=== PATIENT | female | born 1970 | race Caucasian/White ===

== ENCOUNTER → 2019-06-06 13:37 | Outpatient (CLI) | payer OTHER, SELFPAY ==
--- NOTE | ~2019-06-06 | XR_ITS ---
XR fl inj hip RT for MR/CT DATE: 06/06/2019 15:28 INDICATION: Hip flexor tightness, chronic right hip pain TECHNIQUE: The purpose of the procedure, technique were explained to the patient. The patient gave ve rbal consent. Timeout procedure confirmed proper patient and sidedness. The skin was prepared with sterile Betadine solution. 1% Lidocaine was infiltrated at the skin and u nderlying subcutaneous tissues at the upper outer right thigh. Using fluoroscopic guidance a 22-gaug e spinal needle was introduced into the right hip joint near the base of the right femoral head. 12 c c of dilute Omnipaque and MultiHance solution was injected, with confirmation of intra-articular posi tion of the contrast material by fluoroscopy. Radiographic exposures were made to confirm intra-artic ular position of the contrast material. The patient was very cooperative and tolerated the procedure well, without apparent complication. IMPRESSION: Successful Fluoroscopically guided intra-articular injection of dilute MultiHance injecti on of the right hip joint for MR evaluation Reviewed, dictated and finalized at [facility]. Reviewed, dictated and finalized at location [facility]. 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
--- NOTE | ~2019-06-06 | MR_ITS ---
EXAMINATION: MR hip RT w con DATE: 06/06/2019 15:28 INDICATION: Chronic right hip pain. Hip flexor tightness. TECHNIQUE: Magnetic resonance imaging (MRI) of the right hip was performed without intravenous contra st after intra-articular injection of contrast (MR arthrogram). Sequences included axial T1-weighted FSE and T2-weighted FS FSE, coronal T2-weighted FSE, and small aznrf-jo-nxoi coronal and axial T1-jorje ghted FS FSE and T2-weighted FS FSE, sagittal T2-weighted FS FSE, and radial T1-weighted FGR. COMPARISON: CT abdomen and pelvis 03/02/2017 FINDINGS: Bones/cartilage: Bone alignment is normal. No fracture. The femoral head/neck morphologies are normal. The right hip j oint cartilage is normal. There are tiny right hip osteophytes. Labrum: The right acetabular labrum is normal. Fluid: The right hip joint is well distended by contrast. There is mild bilateral trochanteric bursitis. Soft tissues: The gluteus minimus and medius tendons, iliopsoas tendons, and hamstring origins are normal. There ar e 3 uterine fibroids measuring up to 2.1 cm. There are nabothian cysts in the cervix. IMPRESSION: 1. Normal right hip joint cartilage and labrum. Reviewed, dictated and finalized at location A. MAKER PAPERBOARD
== END ==
PROVIDERS: Visit Provider Internal Medicine
DX: M24.551 Contracture, right hip (principal); M25.551 Pain in right hip; G89.29 Other chronic pain
CPT/HCPCS: 20610; 73722; 77002; A9577; Q9966

== ENCOUNTER 2021-05-06 00:09 | Day surgery (SDC) | payer OTHER, SELFPAY ==
[2021-04-21 14:57] VITALS: BMI 32.0
[2021-05-06 10:05] VITALS: BP 119/92; PULSE 110; RESP 18; TEMP 36.2; O2SAT 100; BMI 31.8
[2021-05-06] MEDS: LACTATED RINGERS 1,000 ML 150 ML IV CONT (10:24)
--- NOTE | 2021-05-06 10:24 | WPDGICN ---
Assessment and Plan Assessment and plan (1) Family history of colon cancer in father: Code(s): Z80.0 - Family history of malignant neoplasm of digestive organs Status: Acute Assessment and Plan: Patient has a family history of colon cancer in both mother and father. Several siblings have had colon polyps. Plan is for PET this patient to have a surveillance colonoscopy every 5 years at least. GI Consult Note Consult date/time: 05/06/21 10:24 HPI: Astrid Millan is a 51 year old female Presents for screening colonoscopy. Patient's family history is significant both mother and father have had colon cancer. Several siblings have had colon polyps. Patient's most recent colonoscopy 2015 normal revealed no specific findings. Patient presents today for screening exam. Her current weight appetite bowel movements are normal. Review of Systems Review of Systems: All systems reviewed & are unremarkable except as noted in HPI and below PMFSH Past Medical History Medical History Allergic rhinitis Family History Family History Mother Hypertension Carcinoma of colon Father Carcinoma of colon Sibling Family history of diabetes mellitus in first degree relative Family history of malignant neoplasm of breast in first degree relative Social History Social History (Updated 07/03/20 @ 15:15 by Flakita Vizcaino) Smoking status: Never smoker Alcohol intake: current Alcohol use details: Occasionally has a drink Substance use: never Substance use type: does not use Living arrangements: with family Gender identity (if verbalized by the patient): Female Spiritual care concerns: No Meds Home Medications and Allergies Home Medications Medication Instructions Recorded Confirmed Type meclizine 25 mg tablet 25 mg PO BID PRN #20 tablet 07/03/20 05/06/21 Rx atorvastatin 40 mg tablet 40 mg PO QHS #90 tablet 02/22/21 05/06/21 Rx omeprazole 20 mg PO DAILY 04/21/21 05/06/21 History Allergies Allergy/AdvReac Type Severity Reaction Status Date / Time adhesive Allergy Unknown BLISTERS Verified 05/06/21 10:04 Ephedrine Analogues Allergy Unknown unk Verified 05/06/21 10:04 pseudoephedrine Allergy Unknown unk Verified 05/06/21 10:04 Vital Signs Vital Signs - 24 hr 05/06/21 10:05 Temperature 97.2 F L Pulse Rate 110 H Respiratory Rate 18 Blood Pressure 119/92 H Pulse Oximetry 100 Exam Narrative: Physical exam reveals patient to be alert. Vital signs stable. HEENT exam is unremarkable. Patient is anicteric. Lungs are clear to auscultation and percussion. Heart is without murmur or extra sounds. Abdominal exam bowel sounds are present soft nontender with no organomegaly. Digital external rectal exam is normal.
--- NOTE | 2021-05-06 10:45 | SUR.PREOP ---
Okay per Dr Garza to discontinue order for urine .
--- NOTE | 2021-05-06 11:15 | WPDANESEPPF ---
Anes - Initial Pre Proc Eval Procedure: Operation Date: 05/06/21 11:00 Proposed Procedures p Screening Colonoscopy - Fortino Chino MD Date/Time: 05/06/21 11:15 Surgeon: Fortino Chino MD Pre Op Diagnosis: hx of colon polyps, family hx of colon ca Patient Data Age: 51 Gender: F Height: 1.57 m Weight: 79 kg Last Vital Signs Temp 97.2 F L 05/06/21 10:05 Pulse 110 H 05/06/21 10:05 Resp 18 05/06/21 10:05 BP 119/92 H 05/06/21 10:05 Pulse Ox 100 05/06/21 10:05 Allergies Allergy/AdvReac Type Severity Reaction Status Date / Time adhesive Allergy Unknown BLISTERS Verified 05/06/21 10:04 Ephedrine Analogues Allergy Unknown unk Verified 05/06/21 10:04 pseudoephedrine Allergy Unknown unk Verified 05/06/21 10:04 Home Medications Medication Instructions Recorded Confirmed Type meclizine 25 mg tablet 25 mg PO BID PRN #20 tablet 07/03/20 05/06/21 Rx atorvastatin 40 mg tablet 40 mg PO QHS #90 tablet 02/22/21 05/06/21 Rx omeprazole 20 mg PO DAILY 04/21/21 05/06/21 History Patient hx anesthesia problems: none Family hx anesthesia problems: none Results Review: All pre-operative results and documents have been reviewed as part of the pre-operative evaluation. [facility] Past Medical History Medical History Allergic rhinitis Family History Family History Mother Hypertension Carcinoma of colon Father Carcinoma of colon Sibling Family history of diabetes mellitus in first degree relative Family history of malignant neoplasm of breast in first degree relative Social History Social History (Updated 07/03/20 @ 15:15 by Flakita Vizcaino) Smoking status: Never smoker Alcohol intake: current Alcohol use details: Occasionally has a drink Substance use: never Substance use type: does not use Living arrangements: with family Gender identity (if verbalized by the patient): Female Spiritual care concerns: No Anes - Eval Final PreProcedure Day of Procedure 05/06/21 11:15 Patient weight: obese Heart: regular rate and rhythm Lungs: clear to auscultation Airway: Mallampati scale class II Neurological: alert and oriented Last oral intake: >/= 8 hours ASA classification: II Emergent: no Anesthetic plan: proceed Anesthesia type and monitoring: general GIVS and standard monitoring Results Review: All pre-operative results and documents have been reviewed as part of the pre-operative evaluation. Informed Consent: The patient's anesthetic plan and its attendant risks and benefits were discussed with the patient/family/POA. Questions were solicited and answers provided to the satisfaction of the patient/family/POA.
[2021-05-06 11:35] VITALS: BP 106/59; PULSE 77; RESP 16; O2SAT 100
[2021-05-06 11:45] VITALS: BP 117/65; PULSE 75; RESP 15; O2SAT 100
[2021-05-06 11:54] VITALS: BP 128/88; PULSE 75; RESP 15; O2SAT 100
== END 2021-05-06 12:10 | disposition home or self-care (01) ==
PROVIDERS: PCP Family Medicine; Visit Provider Internal Medicine Gastroenterology
PROC: 0DJD8ZZ Inspection of Lower Intestinal Tract, Via Natural or Artificial Opening Endoscopic (ICD-10-PCS; CPT 45378; principal; 2021-05-06 11:00)
DX: Z12.11 Encounter for screening for malignant neoplasm of colon (principal); K64.8 Other hemorrhoids; Z80.0 Family history of malignant neoplasm of digestive organs; E66.9 Obesity, unspecified; Z68.31 Body mass index [BMI] 31.0-31.9, adult
CPT/HCPCS: 45378; J2704; J7120

== ENCOUNTER 2021-06-17 14:39 | Outpatient (CLI) | payer OTHER, SELFPAY ==
--- NOTE | ~2021-06-17 | XR_ITS ---
XR tibia fibula LT 2V DATE: 06/17/2021 14:54 INDICATION: Distal anterior tibiofibular injury 3 weeks ago TECHNIQUE: AP and lateral views COMPARISON: None FINDINGS: No fracture or dislocation, periosteal reaction or bone destruction is detected. IMPRESSION: Negative Reviewed, dictated and finalized at location A. T DEMONSTRATOR IMPRESSION: Negative
== END 2021-06-17 14:40 | disposition home or self-care (01) ==
PROVIDERS: PCP Family Medicine; Visit Provider Nurse Practitioner Family
DX: M89.8X6 Other specified disorders of bone, lower leg (principal)
CPT/HCPCS: 73590

== ENCOUNTER 2022-10-14 07:37 | Outpatient (CLI) | payer OTHER, SELFPAY ==
--- NOTE | 2022-11-03 09:23 | WPDSLEEPSTUD ---
Sleep Study Date of Study: 10/14/22 Ordering Provider: NOAH Snyder Interpreting Physician: Kimberly Yost MD Sleep Study Type: Polysomnogram Height: 1.57 m Weight: 79.379 kg Body Mass Index: 32.0 Neck Circumference (inches): 15.5 [place]: 10 Reason for Sleep Study Hypersomnia Sleep History Astrid Millan is a 52-year-old female with history of hypersomnia who requested to have a split night polysomnogram for evaluation of obstructive sleep apnea syndrome. She did not meet criteria for split night so this was conducted as a basic polysomnogram. She rarely awakens from sleep short of breath. She frequently awakens at night with heartburn, belching or coughing, when she does not take medications for this.??She is told that she snores by others, and she snores frequently and loudly enough that others complain. She occasionally has trouble sleeping when she has a cold. She rarely wakes up suddenly gasping for breath during the night. She rarely has breathing problems at night. She rarely sweats excessively at night. She occasionally notices her heart pounding or beating irregularly during the night. She occasionally falls asleep during the day. She occasionally falls asleep while driving. She never experiences loss of muscle tone with strong emotion. she rarely has daytime difficulties due to excessive sleepiness. 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 She never feels paralyzed on waking or falling asleep. She constantly experiences vivid dreams upon waking or falling asleep. She never feels afraid of going to sleep. She occasionally has nightmares. She always recalls her dreams. She always has thoughts racing through her mind. She rarely feels sad or depressed. She occasionally feels anxiety or worry about things. She rarely notices parts of her body jerk. She does not know whether not she kicks at night. She never feels crawling or aching feelings in her legs. She never feels leg pain at night. She frequently grinds her teeth at night, occasionally has morning jaw pain. She occasionally feels bothered by pain during the day, rarely awakened by pain during the night. She frequently wakes up feeling stiff in the morning, never with sore or achy muscles, however frequently wakes with pain in the neck and spine. ? ? Normal bedtime is around 9:30 p.m. to 10 pm, taking about 30 minutes or less to fall asleep. She typically gets about 7 hours of sleep per night. Her wake up time is 5:15 a.m. On weekends, bedtime is between 10:00 p.m. and 10:30 p.m., wake time is between 7:30 a.m. and 8:00 a.m.. She takes naps in the afternoon or evening. A short nap lasting 10 or 15 minutes may be refreshing. She is usually drowsy for 2 hours after waking. She feels better in the morning after she finally wakes up.. Habits:??Tobacco: Never Caffeine: 3-4 servings a day Alcohol : 1 or 2 beverages per week Recreational substances: none [facility] Past Medical History Medical History (Updated 11/03/22 @ 09:43 by Kimberly Yost MD) Allergic rhinitis Pure hypercholesterolemia Reflux esophagitis Family History Family History Mother Hypertension Carcinoma of colon Father Carcinoma of colon Sibling Family history of diabetes mellitus in first degree relative Family history of malignant neoplasm of breast in first degree relative Social History Social History Smoking status: Never smoker Alcohol intake: current Alcohol use details: Occasionally has a drink Substance use: never Substance use type: does not use Living arrangements: with family Occupation/Education: occupation Gender identity (if verbalized by the patient): Female Spiritual care concerns: No Medications Home Medications Medication Instructions Recorded Confirmed Type meclizine 25 mg tablet 25 mg PO BID PRN dizziness #20 tab
[2022-11-03 09:50] VITALS: BMI 32.0
== END 2022-10-15 06:58 | disposition home or self-care (01) ==
PROVIDERS: PCP Family Medicine; Visit Provider Physician Assistant
DX: G47.33 Obstructive sleep apnea (adult) (pediatric) (principal); G47.10 Hypersomnia, unspecified; E78.00 Pure hypercholesterolemia, unspecified; K21.00 Gastro-esophageal reflux disease with esophagitis, without bleeding
CPT/HCPCS: 95810

== ENCOUNTER 2022-11-19 09:28 | Outpatient (CLI) | payer OTHER, SELFPAY | END 2022-11-19 09:29 | disposition home or self-care (01) | LOC: ANHLAB 09:30 | PROVIDERS: PCP Family Medicine; Visit Provider Nurse Practitioner Family | DX: G47.61 Periodic limb movement disorder (principal) | CPT/HCPCS: 36415; 82728 ==

== ENCOUNTER 2022-11-25 15:52 | Outpatient (CLI) | payer OTHER, SELFPAY ==
[2022-11-25 16:50] LABS: Basophils Absolute Auto 0.1 K/mm3 (0.0-0.1); Basophils Percent Auto 0.9 % (0.2-1.2); Eosinophils Absolute Auto 0.1 K/mm3 (0-0.3); Eosinophils Percent Auto 1.6 % (0-4.4); Hematocrit 42.2 % (37.0-47.0); Hemoglobin 13.7 g/dL (12.0-15.0); Immature Granulocyte Absolute 0.03 K/mm3 (0.00-0.031); Immature Granulocyte Percent A 0.4 % (0-0.5); Lymphocytes Absolute Auto 2.36 K/mm3 (0.9-3.2); Lymphocytes Percent Auto 31.7 % (18.3-44.2); Mean Corpuscular HGB Conc 32.5 g/dl (32-36); Mean Corpuscular Hemoglobin 29.3 pg (26-34); Mean Corpuscular Volume 90.2 fl (80-100); Mean Platelet Volume 10.1 fl (7.4-10.4); Monocytes Absolute Auto 0.9 K/mm3 (0.1-0.6); Monocytes Percent Auto 11.7 % (2.6-8.5); Neutrophils Percent Auto 53.7 % (45.5-73.1); Platelet Count Result 242 k/mm3 (150-375); Red Blood Count 4.68 M/mm3 (4.2-5.4); White Blood Count 7.4 K/mm3 (4.5-10.0)
[2022-11-25 17:02] LABS: Iron 82 ug/dL (37-170)
[2022-11-25 17:12] LABS: Percent Iron Saturation 19 % (20-50)
== END 2022-11-25 15:53 | disposition home or self-care (01) ==
LOC: ANHLAB 15:53
PROVIDERS: PCP Family Medicine; Visit Provider Physician Assistant
DX: D64.9 Anemia, unspecified (principal); R79.0 Abnormal level of blood mineral
CPT/HCPCS: 36415; 83540; 83550; 85025

== ENCOUNTER 2024-01-05 15:03 | Emergency (ER) | payer OTHER, SELFPAY ==
--- NOTE | 2024-01-05 15:19 | ECG_ITS ---
Test Date: 2024-01-05 18:27:33 Measurements Intervals [place] Rate: 69 P: 19 VA: 155 QRS: -38 QRSD: 85 T: -2 QT: 384 QTc: 412 Interpretive Statements SINUS RHYTHM LEFT AXIS DEVIATION MINIMAL Q WAVES- HIGH LATERAL LEADS POOR R WAVE PROGRESSION BORDERLINE T WAVE ABNORMALITY- INFERIOR LEADS BASELINE ARTIFACT- I, AVL BORDERLINE ECG No previous ECG available for comparison Electronically Signed On 01-05-2024 18:51:53 CDT by Alexandro Trotter D.O.
[2024-01-05 15:20] VITALS: BP 108/70; PULSE 77; RESP 20; TEMP 37.2; O2SAT 100
[2024-01-05 16:50] VITALS: BP 121/78; PULSE 82; RESP 18; TEMP 36.8; O2SAT 100
[2024-01-05 18:31] LABS: Basophils Absolute Auto 0.1 K/mm3 (0.0-0.1); Basophils Percent Auto 0.8 % (0.2-1.2); Eosinophils Absolute Auto 0.1 K/mm3 (0-0.3); Hematocrit 44.8 % (37.0-47.0); Hemoglobin 14.7 g/dL (12.0-15.0); Immature Granulocyte Absolute 0.03 K/mm3 (0.00-0.031); Immature Granulocyte Percent A 0.3 % (0-0.5); Lymphocytes Absolute Auto 2.03 K/mm3 (0.9-3.2); Lymphocytes Percent Auto 21.9 % (18.3-44.2); Mean Corpuscular HGB Conc 32.8 g/dl (32-36); Mean Corpuscular Hemoglobin 29.4 pg (26-34); Mean Corpuscular Volume 89.6 fl (80-100); Mean Platelet Volume 9.3 fl (7.4-10.4); Monocytes Absolute Auto 0.8 K/mm3 (0.1-0.6); Monocytes Percent Auto 8.3 % (2.6-8.5); Neutrophils Absolute Auto 6.3 K/mm3 (1.3-6.7); Neutrophils Percent Auto 67.7 % (45.5-73.1); Platelet Count Result 268 k/mm3 (150-375); Red Cell Distribution Width 13.2 % (11.5-14.5); White Blood Count 9.3 K/mm3 (4.5-10.0)
[2024-01-05 18:40] LABS: Alanine Aminotransferase 14 U/L (6-35); Albumin Level 4.4 g/dL (3.5-5.1); Alkaline Phosphatase 101 U/L (38-126); Anion Gap 9 mmol/L (4-12); Aspartate Amino Transferase 27 U/L (14-36); Bilirubin,Total 0.6 mg/dL (0.2-1.3); Blood Urea Nitrogen 15 mg/dL (7-17); Calcium 9.8 mg/dL (8.4-10.2); Carbon Dioxide 30 mmol/L (22-30); Chloride 100 mmol/L (98-107); Estimated CRCL calculation 51 ml/min; Estimated Glomerular Filt Rate 52; Glucose 98 mg/dL (65-110); Potassium 4.3 mmol/L (3.4-5.0); Sodium 139 mmol/L (137-145)
[2024-01-05] MEDS: SODIUM CHLORIDE 0.9% IV 1,000 ML 999 ML IV CONT (19:06)
--- NOTE | 2024-01-05 19:33 | ED.GENADULT ---
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 this afternoon. 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 Patient started to get very thirsty and lightheaded and decided to walk into the building to get some water an as she was walking she started to become lightheaded. Once she needed inside the building, another teacher called the nurse and while the school nurse was evaluating the patient she noticed that her heart rate was elevated and recommended that the patient be brought to our facility for further evaluation. Patient states that once arrival to the emergency department she feels better. Denies any room spinning sensation. Denies any chest pain or shortness of breath. No additional symptoms or concerns at this time. Related Data Home Medications Medication Instructions Recorded Confirmed escitalopram oxalate 10 mg tablet 10 mg PO DAILY 08/16/22 10/18/23 loratadine 10 mg tablet (Claritin) 10 mg PO DAILY 07/26/23 10/18/23 Allergies Allergy/AdvReac Type Severity Reaction Status Date / Time adhesive Allergy Unknown BLISTERS Verified 10/18/23 10:08 Ephedrine Analogues Allergy Unknown unk Verified 10/18/23 10:08 pseudoephedrine Allergy Unknown unk Verified 10/18/23 10:08 Review of Systems Review of Systems: All systems are reviewed and are negative unless stated otherwise in the HPI. [facility] Past Medical History Medical History Allergic rhinitis Pure hypercholesterolemia Reflux esophagitis Family History Family History Mother Hypertension Carcinoma of colon Father Carcinoma of colon Sibling Family history of diabetes mellitus in first degree relative Family history of malignant neoplasm of breast in first degree relative Social History Social History Smoking status: Never smoker Alcohol intake: current Alcohol use details: Occasionally has a drink Substance use: never Substance use type: does not use Do You Feel Safe in your Home?: Yes Lack of Transportation: No Lack of Food: Never True Current Housing: I Have Housing Concerned About Future Housing: No Difficulty Paying Gas/Electric Bills: No Difficulty Paying for Meds: No Currently Unemployed: No Education: Bachelor's Degree Living arrangements: with family Occupation/Education: occupation Gender identity (if verbalized by the patient): Female Spiritual care concerns: No Exam Narrative: General: Alert, awake, afebrile, in no acute distress. HEENT: PERRL, no rhinorrhea, no post nasal drip, oropharynx clear. Cardiovascular: Regular rate and rhythm, no murmurs, rubs or gallops, no peripheral edema. Respiratory: Clear to auscultation bilaterally, no tachypnea, no wheezing, no rhonchi, no rubs, no respiratory distress. Abdomen: Soft, nontender, nondistended, no rebound, no guarding, no peritoneal signs. Musculoskeletal: No joint swelling or deformity, normal muscle tone. Skin: No rashes or petechia, no signs of infection. Neurological: Alert and oriented to person, place, and time. Follows all commands. No focal deficits, speech is clear and fluent. Course Vital Signs Vital signs: Vital Signs Temperature 98.9 F 01/05/24 15:20 Pulse Rate 77 01/05/24 15:20 Respiratory Rate 20 01/05/24 15:20 Blood Pressure 108/70 01/05/24 15:20 Pulse Oximetry 100 01/05/24 15:20 Oxygen Delivery Room A
[2024-01-05 19:40] LABS: Influenza A QL RT-PCR Negative (Negative); Influenza B QL RT-PCR Negative (Negative); SARS-CoV-2 RNA PCR Negative (Negative)
[2024-01-05 20:24] LABS: Add Urine Microscopic? YES; Appearance Urine Cloudy (Clear); Bacteria Urine 3+ /hpf; Bilirubin Urine Negative (Negative); Blood Urine Negative (Negative); Color Urine Yellow (Yellow); Glucose Urine UA Negative (Negative); Ketones Urine Negative (Negative); Leukocyte Esterase Ur 3+ LEU/UL (Negative); Nitrate Urine Negative (Negative); Non Pathogenic Casts 0-2; Protein Urine Negative (Negative); Specific Grav Ur 1.013 (1.001-1.035); Squamous Epithelial Cell Urine Many /hpf (Few); Urobilinogen Urine 0.2 mg/dL (<2.0); WBC Urine 21-50 /hpf (0-3)
[2024-01-05 20:31] VITALS: BP 113/58; PULSE 70; RESP 18; O2SAT 100
== END 2024-01-05 20:59 | disposition home or self-care (01) ==
PROVIDERS: Emergency Provider Emergency Medicine; PCP Family Medicine
DX: E86.0 Dehydration (principal); X30.XXXA Exposure to excessive natural heat, initial encounter; R55 Syncope and collapse; N39.0 Urinary tract infection, site not specified; E78.00 Pure hypercholesterolemia, unspecified; Z20.822 Contact with and (suspected) exposure to COVID-19
CPT/HCPCS: 36415; 80053; 81001; 83735; 85025; 87086; 87088; 87636; 93005; 96360; 99283; J7030